=== PATIENT | female | born 1950 | race Caucasian/White ===

== ENCOUNTER 2024-06-09 05:06 | Emergency (ER) | payer MEDICARE, SELFPAY ==
--- NOTE | 2024-06-09 05:14 | ED.FALL ---
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 She is staying with her daughter was sleeping in a room she was not familiar with got up in the middle of the night fell forward onto her face. No loss of consciousness having active epistaxis. No neck pain no nausea no vomiting. No other rib pain or pelvic pain. Patient History Social History Smoking Status: Former smoker Exam Initial Vital Signs Initial Vital Signs: Vital Signs Temperature 97.1 F L 06/09/24 05:15 Pulse Rate 76 06/09/24 05:15 Respiratory Rate 18 06/09/24 05:15 Blood Pressure 125/73 06/09/24 05:15 Pulse Oximetry 95 06/09/24 05:15 Oxygen Delivery Method Room Air 06/09/24 05:15 GENERAL: Alert 74-year-old female and in no acute distress. HEENT: Head atraumatic,EOMI, pupils reactive, face symmetric, moist mucous membranes NOSE: No active epistaxis CARDIOVASCULAR: Regular rate and rhythm without murmurs, rubs or gallops. RESPIRATORY: Breath sounds equal bilaterally, no wheezes rales or rhonchi. ABDOMEN: Soft, nontender. Normoactive bowel sounds all 4 quadrants. No guarding or rebound. EXTREMITIES: Normal range of motion, no clubbing or edema. Neurovascularly intact Left upper extremities good flexion extension NEUROLOGICAL: Alert and oriented x4.Normal gait and speech. Cranial nerves II through XII grossly intact. SKIN: Warm, dry, no laceration, no petechiae, no rashes or lesions. Skin abrasion noted on left elbow Course Vital Signs Vital signs: Vital Signs - 8 hr 06/09/24 05:15 Temperature 97.1 F L Pulse Rate 76 Respiratory Rate 18 Blood Pressure 125/73 Pulse Oximetry 95 Oxygen Delivery Method Room Air MDM - Fall MDM Narrative Medical decision making narrative: Patient 74-year-old female presenting today after ground level fall on Eliis. She was having some epistaxis but it has self resolved. No significant nasal deformity. No obvious head injury or laceration. Neck is supple. Minor skin abrasion. Discussed with patient need for CT Unfortunately our CT scanner is down arrangements in orders being made for CT downtime protocol. Patient would like to leave against medical advice and go to [facility]. They do not want her to travel in the ambulance they would just drive her. Explained risks of intracranial hemorrhage decompensation. Patient is with daughter who is taking full responsibility The patient is clinically sober, free from distracting injury, appears to have intact insight, judgment and reason. Does not meet criteria for involuntary hospitalization. Patient has the capacity to make decisions. The patient is also not under any duress to leave the hospital. In this scenario, it would be battery to subject the patient to treatment against his/her will. I have voiced my concerns for the patient's health given that a full evaluation and treatment had not occurred. I have discussed the need for continued evaluation to determine if there symptoms are caused by a condition that present risk of or morbidity. Risk including but not limited to , permanent disability, prolonged hospitalization, prolonged illness, were discussed. I tried offering alternative options in hopes that the patient might be amenable to partial evaluation and treatment which would be medically beneficial to the patient, though the patient declined my options and insisted on leaving. Because I have been unable to convince the patient to stay I answered all of their questions about the condition and ask them to return to the ED as soon as possible to complete their evaluation, especially if their symptoms worsen or do not improve. I emphasized that leaving against medical advice did not preclude returning here for further evaluation. I asked the patient to return if they change their mind about the further evaluation and treatment. I strongly encouraged the patient to return to this emergency department or any emergency department at any time, particularly with worsening symptoms. Discharge Plan Departure Patient Disposition: Left Against Medical Advice Clinical Impression: Fall, Closed head injury Instructions: DI for Closed Head Injury Activity Restrictions/Additional Instructions: It is strongly recommended that you get CT imaging to rule out intracranial hemorrhage which can lead to Stand Alone Forms: Patient Portal/API, Against Medical Advice
[2024-06-09 05:15] VITALS: BP 125/73; PULSE 76; RESP 18; TEMP 36.2; O2SAT 95; BMI 32.5
== END 2024-06-09 05:35 | disposition left against medical advice (07) ==
PROVIDERS: Emergency Provider Emergency Medicine
DX: S09.8XXA Other specified injuries of head, initial encounter (principal); W18.30XA Fall on same level, unspecified, initial encounter; R04.0 Epistaxis; Z79.01 Long term (current) use of anticoagulants; Z53.29 Procedure and treatment not carried out because of patient's decision for other reasons
CPT/HCPCS: 99282; 99283